=== PATIENT | male | born 1965 | race Caucasian/White ===

== ENCOUNTER 2016-04-08 17:00 | Emergency (ER) | payer MEDICAID ==
[2016-04-08 17:39] VITALS: BP 129/89; PULSE 92; TEMP 97.9; BMI 31.8
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
== END 2016-04-08 17:53 | disposition home or self-care (01) ==
LOC: EDMC 17:00
DX: R07.89 Other chest pain (principal)
CPT/HCPCS: 99282